=== PATIENT | male | born 1975 | race Caucasian/White ===

== ENCOUNTER → 2017-12-09 18:09 | Emergency (ER) | payer OTHER ==
--- NOTE | 2017-12-09 19:31 | ED ---
Upper Extremity Pain - HPI Summary HPI Summary: Patient complains of right hand pain worse at fifth MCP joint after fall today while climbing stairs. Denies any other pain injury or symptoms. - History of Current Complaint Chief Complaint: EDExtremityUpper Stated Complaint: RT HAND INJURY Time Seen by Provider: 12/09/17 18:32 Hx Obtained From: Patient Mechanism Of Injury: Blunt Trauma Onset/Duration: Started Hours Ago Timing: Constant Severity Initially: Mild Severity Currently: Mild Pain Location: Hand Character: Dull Aggravating Factor(s): Movement Alleviating Factor(s): Rest Associated Signs & Symptoms: Positive: Swelling - Allergies/Home Medications Allergies/Adverse Reactions: Allergies Allergy/AdvReac Type Severity Reaction Status Date / Time No Known Allergies Allergy Verified 12/09/17 18:11 Home Medications: Home Medications Levothyroxine TAB* [Synthroid 100 MCG TAB*] 100 mcg PO DAILY 12/09/17 [History Confirmed 12/09/17] Tamsulosin HCl 0.4 mg PO DAILY 12/09/17 [History Confirmed 12/09/17] PMH/Surg Hx/FS Hx/Imm Hx Endocrine/Hematology History: Denies: Hx Anticoagulant Therapy History: Denies: Hx Dialysis Neurological History: Denies: Hx CVA - Surgical History Surgery Procedure, Year, and Place: nasal polyps removed. pin placed in right middle finger 10 years ago Infectious Disease History: No Infectious Disease History: Denies: Traveled Outside the [place] in Last 30 Days - Social History Alcohol Use: Occasionally Substance Use Type: Reports: None Smoking Status (MU): Never Smoked Tobacco Review of Systems Constitutional: Negative Eyes: Negative ENT: Negative Cardiovascular: Negative Respiratory: Negative Gastrointestinal: Negative Genitourinary: Negative Musculoskeletal: Other Skin: Negative Neurological: Negative Psychological: Normal All Other Systems Reviewed And Are Negative: Yes Physical Exam - Summary Physical Exam Summary: Swelling to the fifth MCP joint. PMS intact distally. Full extension and flexion of right fifth digit. No snuffbox tenderness. Triage Information Reviewed: Yes Vital Signs On Initial Exam: Initial Vitals Temp Pulse Resp BP Pulse Ox 98.4 F 67 14 159/93 96 12/09/17 18:13 12/09/17 18:13 12/09/17 18:13 12/09/17 18:13 12/09/17 18:13 Vital Signs Reviewed: Yes Appearance: Positive: Well-Appearing Skin: Positive: Warm Head/Face: Positive: Normal Head/Face Inspection Eyes: Positive: Normal Neck: Positive: Supple Respiratory/Lung Sounds: Positive: Clear to Auscultation Cardiovascular: Positive: Normal Abdomen Description: Positive: Nontender Musculoskeletal: Positive: Normal Neurological: Positive: Normal Psychiatric: Positive: Normal AVPU Assessment: Alert - Neris Coma Scale Best Eye Response: 4 - Spontaneous Best Motor Response: 6 - Obeys Commands Best Verbal Response: 5 - Oriented Coma Scale Total: 15 Procedures - Splinting 1 Location: right wrist and hand Hand-Made Type: orthoglass Splint: ulnar Pre-Proc Neuro Vasc Exam: normal Post-Proc Neuro Vasc Exam: normal Diagnostics - Vital Signs Vital Signs Temp Pulse Resp BP Pulse Ox 12/09/17 18:13 98.4 F 67 14 159/93 96 - Laboratory Lab Statement: Any lab studies that have been ordered have been reviewed, and results considered in the medical decision making process. Course/Dx - Course Course Of Treatment: Patient complains of right hand pain worse at fifth MCP joint after fall today while climbing stairs. Denies any other pain injury or symptoms. Physical exam:Swelling to the fifth MCP joint. PMS intact distally. Full extension and flexion of right fifth digit. No snuffbox tenderness. Patient refused pain medication. U;lnar gutter splint placed. Follow-up with orthopedics. - Diagnoses Provider Diagnoses: Fracture of fifth metacarpal bone of right hand Discharge - Sign-Out/Discharge Documenting (check all that apply): Patient Departure - Discharge Plan Condition: Stable Disposition: HOME Patient Education Materials: Boxer Fracture (ED) Referrals: No Primary Care Phys,NOPCP [Primary Care Provider] - Penelope Burr MD [Medical Doctor] - Additional Instructions: Ibuprofen for pain and swelling. Follow-up with orthopedics Dr. Burr in 3-4 days for further evaluation. Return to the ED for any new or worsening symptoms - Billing Disposition and Condition Condition: STABLE Disposition: Home
[2017-12-09 20:05] VITALS: BP 125/71
--- NOTE | 2017-12-10 08:47 | RAD ---
INDICATION: Pain at the fifth metacarpal after falling COMPARISON: None. TECHNIQUE: 4 views of the right hand were obtained. FINDINGS: There is a slightly impacted fracture at the distal metaphysis of the right fifth metacarpal exhibiting a small degree of dorsal angulation. The remaining visualized bones are intact and appropriately aligned. IMPRESSION: Minimally displaced fracture at the distal pole of the right fifth metacarpal. R0
== END | disposition home or self-care (01) ==
LOC: ED 18:09
DX: S62.316A Displaced fracture of base of fifth metacarpal bone, right hand, initial encounter for closed fracture (principal); W10.2XXA Fall (on)(from) incline, initial encounter; Y92.9 Unspecified place or not applicable
CPT/HCPCS: 99282

== ENCOUNTER 2017-12-14 12:41 | Day surgery (SDC) | payer OTHER ==
[~2017-12-14 12:41] MED LIST: Buffered Lidocaine 0.9% SYRIN* 5 ML/SYR SYRINGE INTRADERM ONE; Dexamethasone IV* 4 MG/ML 1 ML (4 MG) IV SLOW PU ONE; Famotidine IV* 10 MG/ML 2 ML (20 mg) IV ONE
[2017-12-14] MEDS ORDERED: Famotidine IV* 10 MG/ML 2 ML (20 mg) ONE (12:55)
[2017-12-14] MEDS ORDERED: ceFAZolin 2 GM PREMIX in ORs 2 GM/50 ML BAG IVPB ONE (12:55)
[2017-12-14] MEDS ORDERED: Dexamethasone IV* 4 MG/ML 1 ML (4 MG) ONE (12:55)
[2017-12-14] MEDS ORDERED: fentaNYL* 50 MCG/ML 2 ML VIAL (100 MCG VIAL) ONE (14:49)
[2017-12-14] MEDS ORDERED: Bupivacaine 0.25% SDV* 30 ML ONE (14:50)
[2017-12-14] MEDS ORDERED: Lidocaine 2% PF * 5 ML VIAL ONE (14:50)
[2017-12-14] MEDS ORDERED: Propofol* 10 MG/ML 20 ML BTL IV PUSH ONE (14:50)
[2017-12-14] MEDS ORDERED: Ondansetron INJ* 2 MG/ML VIAL ONE (15:19)
[2017-12-14] MEDS ORDERED: Ketorolac INJ* 30 MG/ML 1 ML VIAL ONE (15:22)
[2017-12-14] MEDS ORDERED: fentaNYL* 50 MCG/ML 2 ML VIAL (100 MCG VIAL) IV PRN (15:30)
[2017-12-14] MEDS ORDERED: Naloxone* 0.4 MG/ML 1 ML VIAL IV PRN (15:30)
[2017-12-14] MEDS ORDERED: DiMENhydriNATE IV* 50 MG/ML VIAL IV PUSH PRN (15:30)
[2017-12-14 15:58] VITALS: BP 127/96
--- NOTE | 2017-12-15 13:21 | OP ---
DATE OF OPERATION: 12/14/17 FORMERLY [facility] DATE OF : 71 SURGEON: Sammy Delgado MD TRANSIT POLICE OFFICER: GAVIN Adam. An ophthalmic medical assistant was needed for the case to aid in position of the arm. ANESTHESIOLOGIST: Dr. Zhang. ANESTHESIA: General. PRE-OP DIAGNOSIS: Right fifth metacarpal displaced fracture. POST-OP DIAGNOSIS: Right fifth metacarpal displaced fracture. OPERATIVE PROCEDURE: Closed reduction and percutaneous fixation of right fifth metacarpal shaft fracture. INDICATIONS: Jersey had a fall on the stairs and had a very displaced fifth metacarpal shaft fracture. It was about 70 degrees angulated. We talked about treatment options including letting to healing as it was and he wanted to proceed with pinning. ESTIMATED BLOOD LOSS: 2 mL. COMPLICATIONS: None. FINDINGS: See above and below. DESCRIPTION OF PROCEDURE: Jersey was seen in the preoperative holding area. The correct side, site, and procedure were identified. We came back to the operating room where the arm was prepped and draped in the usual fashion, through a pre-scrub was performed. I began by bringing the mini C-arm fluoroscopy machine in. I performed a closed reduction maneuver. I placed one K-wire from distal ulnar exiting out proximal radial. I then placed a second K-wire from distal radial into the collateral fossa and this was taken down to the subchondral bone of the fifth metacarpal near the CMC joint. There was an articular split up into the head of the fracture. I wanted to stabilize things with one more pin, and so I placed a third K-wire from distal ulnar exiting it out the proximal radial metacarpal shaft. At this point, I thought the fixation was good. The joint line was not displaced. I thought the alignment was in nice acceptable position and we corrected the angulation. I therefore bent and clipped the wires. Final fluoroscopic imaging was obtained. All of the wires were 0.45 K wires. The wires were dressed with Xeroform, 4x4s, sterile Webril, and then an ulnar gutter plaster splint was applied with the hand in the intrinsic plus position. The tourniquet was not used throughout the case. He was taken to the recovery room in stable condition. [id number]/[facility] #: [id number] [facility]
== END 2017-12-14 16:30 | disposition home or self-care (01) ==
LOC: OREAST 12:41
PROVIDERS: ATTEND Orthopaedic Surgery Hand Surgery
DX: S62.336A Displaced fracture of neck of fifth metacarpal bone, right hand, initial encounter for closed fracture (principal); E03.9 Hypothyroidism, unspecified; W10.9XXA Fall (on) (from) unspecified stairs and steps, initial encounter; Y92.9 Unspecified place or not applicable
CPT/HCPCS: 76000; C1776; J0690; J1100; J1885; J2405; J2704; J3010

== ENCOUNTER 2018-04-02 08:48 | Day surgery (SDC) | payer OTHER ==
[~2018-04-02 08:48] MED LIST changes: -Buffered Lidocaine 0.9% SYRIN* 5 ML/SYR SYRINGE INTRADERM ONE; +Buffered Lidocaine 1% SYRIN* 1 ML/SYRINGE INTRADERM ONE; -Dexamethasone IV* 4 MG/ML 1 ML (4 MG) IV SLOW PU ONE; +Lactated Ringers 1000 ML Bag* 1,000 ML IV SCH
[2018-04-02] MEDS ORDERED: Famotidine IV* 10 MG/ML 2 ML (20 mg) ONE (09:09)
[2018-04-02] MEDS ORDERED: Bupivacaine 0.5%* 50 ML VIAL ONE (11:36)
[2018-04-02] MEDS ORDERED: Midazolam* 1 MG/ML 5 ML VIAL (5 MG) ONE (11:38)
[2018-04-02] MEDS ORDERED: oxyCODONE TAB* 5 MG TAB PO PRN (12:00)
[2018-04-02] MEDS ORDERED: Acetaminophen TAB* 325 MG PO PRN (12:00)
[2018-04-02] MEDS ORDERED: DiMENhydriNATE IV* 50 MG/ML VIAL IV PUSH PRN (12:00)
[2018-04-02] MEDS ORDERED: Naloxone* 0.4 MG/ML 1 ML VIAL IV PRN (12:00)
[2018-04-02] MEDS ORDERED: fentaNYL* 50 MCG/ML 2 ML VIAL (100 MCG VIAL) ONE (12:08)
[2018-04-02] MEDS ORDERED: Ondansetron INJ* 2 MG/ML VIAL ONE (12:27)
[2018-04-02] MEDS ORDERED: Propofol* 10 MG/ML 20 ML BTL ONE (12:27)
[2018-04-02] MEDS ORDERED: Lidocaine 2% PF * 5 ML VIAL ONE (12:27)
[2018-04-02] MEDS ORDERED: Ketorolac INJ* 30 MG/ML 1 ML VIAL ONE (12:27)
[2018-04-02 13:19] VITALS: BP 112/89
--- NOTE | 2018-04-02 20:37 | OP ---
DATE OF OPERATION: 04/02/18 - [facility] DATE OF : 71 SURGEON: Sammy Delgado MD FIRST HELPER: GAVIN Adam ANESTHESIOLOGIST: Dr. Swanson. ANESTHESIA: Local MAC. PRE-OP DIAGNOSIS: Right carpal tunnel syndrome. POST-OP DIAGNOSIS: Right carpal tunnel syndrome. OPERATIVE PROCEDURE: Right carpal tunnel release. INDICATIONS: Jersey has carpal tunnel syndrome that occurred after a period of casting. We waited many months for it to get better. It has very slowly been improving, but many months later he spends about 50% of his time with the fingers numb and tingly. I told him that I wanted to see if we could help this along by doing a carpal tunnel release. He understands the risks and benefits associated with the procedure and he wants to proceed. ESTIMATED BLOOD LOSS: 2 mL. COMPLICATIONS: None. FINDINGS: See above and below. DESCRIPTION OF PROCEDURE: Jersey was seen in the preoperative holding area. The correct side, site, and procedure were identified. We came back to the operating room where he got some anesthesia and then I infiltrated the operative area with 0.5% ropivacaine. The arm was then prepped and draped in the usual fashion and a time-out was performed. The arm was exsanguinated with the Esmarch and the tourniquet was inflated to 250 mmHg. I made a 2 to 3 cm longitudinal incision in the proximal palm in the typical location for an open carpal tunnel release. Dissection was carried down through the subcutaneous tissue and palmar fascia. The transverse carpal ligament was released just off the radial aspect of the hook of the hamate. The release was completed distally and then proximally with the use of a Keila retractor for visualization and then the tenotomy scissors. Then proximally, I released the subcutaneous tissue and fascia and retracted this out of the way with the Keila retractor. The remainder of the transverse carpal ligament was released with the 15 blade and then the tenotomy scissors under direct visualization. I then confirmed that there was absolutely no compression on the nerve. Everything was looking good, so we irrigated out the wound. The skin was closed with 4-0 nylon suture. The wound was dressed with Xeroform, 4x4 , sterile Webril and an Félix bandage. Tourniquet was deflated. The hand pinked up immediately. He was taken to the recovery room in stable condition. [id number]/[facility] #: [id number] [place]
== END 2018-04-02 13:22 | disposition home or self-care (01) ==
LOC: OR 08:48
PROVIDERS: ATTEND Orthopaedic Surgery Hand Surgery
DX: G56.01 Carpal tunnel syndrome, right upper limb (principal); E03.9 Hypothyroidism, unspecified
CPT/HCPCS: J1885; J2250; J2405; J2704; J3010